=== PATIENT | female | born 1965 | race Caucasian/White ===

== ENCOUNTER 2023-11-24 08:12 | Outpatient (CLI) | payer BC, OTHER | END 2023-11-24 08:13 | disposition home or self-care (01) | LOC: CSHMAMMO 08:12 | PROVIDERS: ATTEND Family Medicine | DX: Z13.820 Encounter for screening for osteoporosis (principal); M85.88 Other specified disorders of bone density and structure, other site | CPT/HCPCS: 77080 ==